=== PATIENT | female | born 1975 | race Caucasian/White ===

== ENCOUNTER 2024-04-19 11:58 | Emergency (ER) | payer BC, SELFPAY ==
[2024-04-19 12:03] VITALS: BP 121/79; PULSE 102; RESP 18; TEMP 36.8; O2SAT 96; BMI 28.9
--- NOTE | 2024-04-19 12:44 | ED.PSYCH ---
HPI - Psych General Chief Complaint: Psychiatric Problem/Disorder Stated Complaint: bad anxiety, depression Time Seen by Provider: 04/19/24 12:06 History of Present Illness HPI Narrative: This 48-year-old female comes in reporting lots of anxiety regarding a recent relationship change. She states that she did not foresee a break-up of her relationship that is been in place for over 5 years. she states that she normally does not have symptoms of depression or anxiety. She does report about 15 years ago taking hydroxyzine because of some anxiety at that time. She is currently taking some hydroxyzine without any relief but is not on any other medicines in this regard. She reports insomnia but does not have any suicidal thoughts or plans. She comes in seeking help with her symptoms. She is already made appointments with the psychiatrist and her primary physician and these are scheduled to happen in the next couple weeks. She feels that she would benefit from some medication before these appointments can occur. Related Data Home Medications ?Medication ?Instructions ?Recorded ?Confirmed hydroxizine 25 mg PO .every 6 hours PRN 04/19/24 04/19/24 Previous Rx's ?Medication ?Instructions ?Recorded escitalopram oxalate 10 mg tablet 10 mg PO DAILY #30 tabs 04/19/24 (Lexapro) lorazepam 0.5 mg tablet (Ativan) 0.5 mg PO BID PRN #20 tabs 04/19/24 Allergies Allergy/AdvReac Type Severity Reaction Status Date / Time Penicillins Allergy Mild itcy and Verified 04/19/24 12:20 hives Review of Systems Status of ROS: Reports: 10 or more systems reviewed and unremarkable except as noted in History and below Narrative: Constitutional: No fevers, no weight gain or loss. Eyes: No discharge. No vision changes. HENT: No congestion, no sore throat, no ear pain. Cardiovascular: No chest pain, no palpitations. Respiratory: No shortness of breath, no wheezes, no cough. Gastrointestinal: No abdominal pain, no vomiting, no diarrhea. Genitourinary: No dysuria, no hematuria. Musculoskeletal: Normal range of motion. Skin: No rashes, no pruritis. Neurological: No dizziness, weakness, sensory change, speech change. Endo/Heme/Allergies: No bruising or bleeding. No polydipsia. Pysch: no suicidality . She reports lots of anxiety with insomnia. All other systems reviewed and are negative. PFSH PFSH Social History Smoking Status: Current every day smoker What tobacco products do you use: cigarettes Smoking packs per day: 1 Smoking cigarettes per day: 20.0 Do you use any of these nicotine containing products: None How often do you have a drink containing alcohol: 2-4 times a month AUDIT-C Alcohol total score: 2 Non-prescribed substance use: marijuana (any form) Exam Narrative: Exam Narrative: Constitutional: Well-developed, well-nourished, no acute distress. HEENT: Normocephalic, atraumatic. Neck: Normal range of motion. Nontender. Supple. Heart: Regular. No murmurs. Normal rate. Intact distal pulses. Lungs: Clear to auscultation. No chest discomfort. No wheezes, rhonchi, or rales. Abdomen: Normal bowel sounds. Nontender. No rebound tenderness. Genitalia: Deferred. Back: No midline tenderness. Normal range of motion. Extremities: Normal range of motion. No injury. Skin: Intact. No rash. Warm. No erythema or pallor. Neurologic: No altered sensation. No weakness. Alert and oriented. Psychiatric: No suicidality. Pleasant and cooperative with occasional tears When thinking of her current circumstances. Nursing notes and vitals signs are reviewed. Const: Vital Signs, click to edit/add: Vital Signs - 24 hr 04/19/24 12:03 Temperature 98.2 F Pulse Rate [Pulse Oximeter] 102 H Respiratory Rate 18 Blood Pressure [Ri ght Upper Arm] 121/79 Pulse Oximetry 96 Oxygen Delivery Me thod Room Air Course Vital Signs Vital signs: Initial Vital Signs Temperature 98.2 F 04/19/24 12:03 Temperature Source Temporal Artery Scan 04/19/24 12:03 Pulse Rate 102 H 04/19/24 12:03 Respiratory Rate 18 04/19/24 12:03 Blood Pressure 121/79 04/19/24 12:03 Blood Pressure Mean 93 04/19/24 12:03 Blood Pressure Position Sitting 04/19/24 12:03 Pulse Oximetry 96 04/19/24 12:03 Oxygen Delivery Method Room Air 04/19/24 12:03 Vital Signs Temperature 98.2 F 04/19/24 12:03 Pulse Rate 102 H 04/19/24 12:03 Respiratory Rate 18 04/19/24 12:03 Blood Pressure 121/79 04/19/24 12:03 Pulse Oximetry 96 04/19/24 12:03 Oxygen Delivery Method Room Air 04/19/24 12:03 Temperature 98.2 F 04/19/24 12:03 Pulse Rate 102 H 04/19/24 12:03 Respiratory Rate 18 04/19/24 12:03 Blood Pressure 121/79 04/19/24 12:03 Pulse Oximetry 96 04/19/24 12:03 Oxygen Delivery Method Room Air 04/19/24 12:03 MDM - Psych MDM Narrative Medical decision making narrative: This patient comes in with lots of anxiety related to an adjustment reaction regarding changes in her living and relationships. She has not had any thoughts of harming herself or others and does not have any history of such. She does have appointments arranged with a psychiatrist and her primary physician. It seems appropriate to help her with medication to treat her anxiety and depression symptoms. It seems that these are related to current circumstances as an adjustment reaction. I did provide prescriptions for Ativan 0.5 mg 20 tablets. I also provided prescription for Lexapro 10 mg. She understands the we will refill the Ativan out of the emergency department and that this is a bridging medication until Lexapro or possibly some other antidepressant antianxiety medicine will give sufficient benefit to her. Discharge Plan Discharge Clinical Impression: Acute anxiety, Adjustment reaction Additional Instructions: Take medications as prescribed. Follow up with appointments as scheduled or return if needed. Prescriptions: New lorazepam [Ativan] 0.5 mg tablet 0.5 mg PO BID PRNQty: 20 0RF escitalopram oxalate [Lexapro] 10 mg tablet 10 mg PO DAILY Qty: 30 2RF No Action hydroxizine 25 mg PO .every 6 hours PRN Stand Alone Forms: [employer] Info Instructions
== END 2024-04-19 13:15 | disposition home or self-care (01) ==
PROVIDERS: Emergency Provider Emergency Medicine Emergency Medical Services
DX: F41.9 Anxiety disorder, unspecified (principal); F43.20 Adjustment disorder, unspecified
CPT/HCPCS: 99283; 99284